=== PATIENT | female | born 1990 ===

== ENCOUNTER 2021-12-16 13:28 | Outpatient (CLI) | payer OTHER | END 2021-12-16 14:29 | disposition home or self-care (01) | LOC: PRENATAL 13:28 | PROVIDERS: ATTEND Obstetrics & Gynecology Maternal & Fetal Medicine | DX: Z36.0 Encounter for antenatal screening for chromosomal anomalies (principal); O99.210 Obesity complicating pregnancy, unspecified trimester ==

== ENCOUNTER 2022-01-12 22:56 | Emergency (ER) | payer OTHER ==
[~2022-01-12] VITALS: Ht 160 cm; Wt 55.3 kg
[2022-01-12] MEDS ORDERED: PRENATAL + DHA1 EAC1 (23:34)
[2022-01-13] MEDS ORDERED: FLONASE16 GM NASAL (02:50)
[2022-01-13] MEDS ORDERED: ZYNCOF 20-400120 ML PO (02:50)
[2022-01-13] MEDS ORDERED: ALBUTEROL2.5 MG/3 M IH (02:50)
== END 2022-01-13 02:58 ==
LOC: ER 22:56
DX: O99.512 Diseases of the respiratory system complicating pregnancy, second trimester (principal); Z3A.19 19 weeks gestation of pregnancy; J45.901 Unspecified asthma with (acute) exacerbation

== ENCOUNTER 2022-01-20 14:07 | Outpatient (CLI) | payer OTHER ==
[~2022-01-20 14:07] MED LIST: ALBUTEROL2.5 MG/3 M IH; FLONASE16 GM NASAL; PRENATAL + DHA1 EAC1; ZYNCOF 20-400120 ML PO
== END 2022-01-20 16:12 | disposition home or self-care (01) ==
LOC: PRENATAL 14:07
PROVIDERS: ATTEND Obstetrics & Gynecology Maternal & Fetal Medicine
DX: O35.0XX0 Maternal care for (suspected) central nervous system malformation in fetus, not applicable or unspecified (principal); O35.3XX0 Maternal care for (suspected) damage to fetus from viral disease in mother, not applicable or unspecified; O24.419 Gestational diabetes mellitus in pregnancy, unspecified control; O99.210 Obesity complicating pregnancy, unspecified trimester; Z3A.20 20 weeks gestation of pregnancy

== ENCOUNTER 2022-02-16 14:48 | Outpatient (CLI) | payer OTHER | END 2022-02-16 15:30 | disposition home or self-care (01) | LOC: PRENATAL 14:48 | PROVIDERS: ATTEND Obstetrics & Gynecology Maternal & Fetal Medicine | DX: O26.849 Uterine size-date discrepancy, unspecified trimester (principal); O24.419 Gestational diabetes mellitus in pregnancy, unspecified control; O99.210 Obesity complicating pregnancy, unspecified trimester; Z3A.23 23 weeks gestation of pregnancy ==

== ENCOUNTER 2022-03-17 14:22 | Outpatient (CLI) | payer OTHER | END 2022-03-17 16:31 | disposition home or self-care (01) | LOC: PRENATAL 14:22 | PROVIDERS: ATTEND Obstetrics & Gynecology Maternal & Fetal Medicine | DX: O26.849 Uterine size-date discrepancy, unspecified trimester (principal); O24.419 Gestational diabetes mellitus in pregnancy, unspecified control; O34.219 Maternal care for unspecified type scar from previous cesarean delivery; Z3A.28 28 weeks gestation of pregnancy ==

== ENCOUNTER → 2022-04-14 | Outpatient (CLI) | payer OTHER | END | disposition home or self-care (01) | LOC: PRENATAL 15:09 | PROVIDERS: ATTEND Obstetrics & Gynecology Maternal & Fetal Medicine | DX: O26.849 Uterine size-date discrepancy, unspecified trimester (principal); O24.419 Gestational diabetes mellitus in pregnancy, unspecified control; O99.210 Obesity complicating pregnancy, unspecified trimester; O34.219 Maternal care for unspecified type scar from previous cesarean delivery; Z3A.32 32 weeks gestation of pregnancy ==

== ENCOUNTER 2022-05-12 09:07 | Outpatient (CLI) | payer OTHER | END 2022-05-12 12:55 | disposition home or self-care (01) | LOC: PRENATAL 09:07 | PROVIDERS: ATTEND Obstetrics & Gynecology Maternal & Fetal Medicine | DX: O26.849 Uterine size-date discrepancy, unspecified trimester (principal); O24.419 Gestational diabetes mellitus in pregnancy, unspecified control; O99.210 Obesity complicating pregnancy, unspecified trimester; O34.219 Maternal care for unspecified type scar from previous cesarean delivery; Z3A.36 36 weeks gestation of pregnancy ==

== ENCOUNTER 2022-06-04 05:40 | Inpatient (IN) | payer OTHER | END 2022-06-07 12:33 | disposition home or self-care (01) | DRG 785 | LOC: O/R 05:40 → OB/GYN 11:23 | PROVIDERS: ADMIT Specialist | PROC: 10D00Z1 Extraction of Products of Conception, Low, Open Approach (ICD-10-PCS; principal; 2022-06-04) | PROC: 0UB70ZZ Excision of Bilateral Fallopian Tubes, Open Approach (ICD-10-PCS; 2022-06-04) | PROC: 4A1HXCZ Monitoring of Products of Conception, Cardiac Rate, External Approach (ICD-10-PCS; 2022-06-04) | DX: O34.211 Maternal care for low transverse scar from previous cesarean delivery (principal); O24.410 Gestational diabetes mellitus in pregnancy, diet controlled; Z30.2 Encounter for sterilization; Z3A.39 39 weeks gestation of pregnancy; Z20.822 Contact with and (suspected) exposure to COVID-19; Z37.0 Single live birth ==